=== PATIENT | male | born 1955 | race Hispanic/Latino ===

== ENCOUNTER 2024-03-29 05:59 | Observation (INO) | payer MEDICARE ==
[2024-03-27 09:47] LABS: BASOPHILS % 0.6 % (0.0-1.0); EOSINOPHILS # (AUTO) 0.1 (0.0-0.4); HEMATOCRIT 46.9 % (38.2-49.6); HEMOGLOBIN 14.6 g/dL (14.0-18.0); MEAN CORPUSCULAR HEMOGLOBIN 28.9 pg (28-32); MEAN CORPUSCULAR HGB CONC 31.1 g/dL (31-35); MEAN CORPUSCULAR VOLUME 92.9 fL (81-99); MONOCYTES # (AUTO) 0.5 (0.2-0.8); MONOCYTES % 6.7 % (4.4-11.3); NEUTROPHILS # (AUTO) 3.2 (2.1-6.9); NEUTROPHILS % 47.4 % (38.7-80.0); PLATELET COUNT 214 x10e3/uL (140-360); RED BLOOD COUNT 5.05 x10e6/uL (4.3-5.7); RED CELL DISTRIBUTION WIDTH 15.7 % (11.7-14.4); WHITE BLOOD COUNT 6.72 x10e3/uL (4.8-10.8)
[2024-03-27 10:00] LABS: INR 0.9; PROTHROMBIN TIME 12.7 seconds (11.9-14.5)
[2024-03-27 10:01] LABS: PARTIAL THROMBOPLASTIN TIME 23.1 seconds (23.8-35.5)
[2024-03-27 11:26] LABS: ANION GAP 17.2 mmol/L (8-16); CALCIUM 9.8 mg/dL (8.4-10.2); CREATININE, SERUM 0.9 mg/dL (0.72-1.25)
[2024-03-27 11:27] LABS: POTASSIUM 5.2 mmol/L (3.5-5.1)
[~2024-03-29] VITALS: Ht 160 cm; Wt 112.0 kg
[~2024-03-29 05:59] MED LIST: ALLOPURINOL300 MG PO; ASPIRIN81 MG PO; CALCIUM PO; FLOMAX0.4 MG PO; LEVOTHYROXINE50 MCG PO; LIPITOR10 MG PO; MAGNESIUM OXID400 MG PO; METFORMIN HCL500 MG PO; METOPROLOL SUCC25 MG PO; MULTI-VITAMIN1 EACH PO; VIT D; VIT D3 PO
[2024-03-29] MEDS: LACTATED RINGER'S 1,000 ML ONE (06:26)
[2024-03-29] MEDS: CEFAZOLIN SODIUM 2 GM ONE (06:26)
[2024-03-29] MEDS ORDERED: MIDAZOLAM HCL 2 MG/2 ML VIAL ONE (07:02)
[2024-03-29] MEDS ORDERED: LIDOCAINE HCL 2% LOCAL INJ 5 ML SDV VIAL INJ ONE (07:02)
[2024-03-29] MEDS ORDERED: SEVOFLURANE INHAL SOLN 250 ML PEN BTL ONE (07:02)
[2024-03-29] MEDS ORDERED: PROPOFOL IV EMULSION 10 MG/ML 20 ML VIAL ONE (07:02)
[2024-03-29] MEDS ORDERED: FENTANYL CITRATE/PF 100MCG/2 ML INJ ONE (07:02)
[2024-03-29] MEDS ORDERED: ROCURONIUM BROMIDE 1 ML IV ONE ×2 (07:02→08:06)
[2024-03-29] MEDS ORDERED: SUCCINYLCHOLINE CHLORIDE 20 MG/ML 10ML VIAL ONE (07:43)
[2024-03-29] MEDS ORDERED: ACETAMINOPHEN 1000 MG/100 ML 100 ML IV ONE (07:58)
[2024-03-29] MEDS ORDERED: EPHEDRINE SULFATE INJ 50 MG/ML VIAL ONE (08:06)
[2024-03-29] MEDS ORDERED: DEXMEDETOMIDINE HCL 2 ML ONE (08:12)
[2024-03-29] MEDS ORDERED: SODIUM CHLORIDE 0.9% 100 ML ONE (08:13)
[2024-03-29] MEDS ORDERED: SUGAMMADEX SODIUM 200 MG/2 ML VIAL IV ONE ×3 (08:20→09:56)
[2024-03-29] MEDS ORDERED: EYE LUBRICANT OPTH OINT 3.5GM TUBE OP ONE (08:35)
[2024-03-29] MEDS ORDERED: HYDROCODON-ACE1 EA12 PO (10:08)
[2024-03-29] MEDS ORDERED: PROMETHAZINE HCL (IM) 25 MG/ML VIAL IM PRN (10:15)
[2024-03-29] MEDS ORDERED: HYDROMORPHONE 2MG/ML IV PRN (10:15)
[2024-03-29] MEDS ORDERED: Morphine 2mg Syringe 2 MG/ML SYR IV PRN (10:15)
[2024-03-29] MEDS ORDERED: MAGNESIUM/ALUMINUM/SIMETHICONE 30 ML UDC PO PRN (10:15)
[2024-03-29] MEDS ORDERED: CARISOPRODOL 350 MG TAB PO PRN (10:15)
[2024-03-29] MEDS ORDERED: ZOLPIDEM TARTRATE 5 MG TAB PO PRN (10:15)
[2024-03-29] MEDS ORDERED: ONDANSETRON HCL INJ 2MG/ML 2ML 2 MG/ML VIAL IV PRN (10:15)
[2024-03-29] MEDS ORDERED: CEPACOL SORE THROAT LOZENGES PO PRN (10:15)
[2024-03-29] MEDS ORDERED: ACETAMINOPHEN 325 MG TAB PO PRN (10:15)
[2024-03-29] MEDS ORDERED: DEXTROSE 50% SYRINGE 50 ML IV PRN (10:15)
[2024-03-29] MEDS: FENTANYL CITRATE/PF 100MCG/2 ML INJ ONE (10:37)
[2024-03-29 12:16] VITALS: BP 153/90; PULSE 76; RESP 14; TEMP 97.6; O2SAT 98
[2024-03-29 13:02] VITALS: BP 153/90; PULSE 76; RESP 14; TEMP 97.6; O2SAT 98
[2024-03-29] MEDS: LACTATED RINGER'S 1,000 ML IV SCH (14:00)
[2024-03-29] MEDS: METFORMIN HCL 500 MG TAB PO SCH (16:34)
[2024-03-29] MEDS: MAGNESIUM OXIDE 400 MG TAB PO SCH (16:34)
[2024-03-29 16:36] VITALS: BP 146/84; PULSE 82; RESP 16; TEMP 98.6; O2SAT 97
[2024-03-29 19:42] VITALS: BP 155/86; PULSE 86; RESP 18; TEMP 98.9; O2SAT 92
[2024-03-29 20:00] VITALS: BP 155/86; PULSE 86; RESP 18; TEMP 98.9; O2SAT 92
[2024-03-29] MEDS: ATORVASTATIN 40 MG TAB PO SCH (20:45)
[2024-03-29] MEDS: METOPROLOL SUCCINATE 25 MG TAB XL PO SCH (20:46)
[2024-03-29] MEDS: OXYCODONE/ACETAMINOPHEN 5-325 1 EACH TABLET PO PRN (20:55)
[2024-03-30] VITALS: BP 133/89; PULSE 68; RESP 18; TEMP 97.7; O2SAT 97
[2024-03-30 05:18] VITALS: BP 115/72; PULSE 61; RESP 18; TEMP 97.9; O2SAT 97
[2024-03-30] MEDS: LEVOTHYROXINE SODIUM 50 MCG TAB PO SCH (05:35)
[2024-03-30 08:30] VITALS: BP 108/67; PULSE 73; RESP 20; TEMP 97.7; O2SAT 96
[2024-03-30] MEDS: MULTIVITAMINS/MINERALS TAB PO SCH (08:32)
[2024-03-30] MEDS: ALLOPURINOL 300 MG TAB PO SCH (08:33)
[2024-03-30] MEDS: TAMSULOSIN HCL 0.4 MG CAP PO SCH (08:33)
[2024-03-30 08:53] VITALS: BP 108/67; PULSE 73; RESP 20; TEMP 97.7; O2SAT 96
== END 2024-03-30 10:55 | disposition home or self-care (01) ==
LOC: OR 05:59 → PACU V 10:04 → MED/SURG 11:56
PROVIDERS: ADMIT Neurological Surgery; ATTEND Neurological Surgery
DX: M50.01 Cervical disc disorder with myelopathy, high cervical region (principal); G56.01 Carpal tunnel syndrome, right upper limb; G47.33 Obstructive sleep apnea (adult) (pediatric); E11.9 Type 2 diabetes mellitus without complications; I10 Essential (primary) hypertension; E03.9 Hypothyroidism, unspecified; E78.5 Hyperlipidemia, unspecified; E66.9 Obesity, unspecified; E66.01 Morbid (severe) obesity due to excess calories; N40.0 Benign prostatic hyperplasia without lower urinary tract symptoms; N20.0 Calculus of kidney; Z88.6 Allergy status to analgesic agent; Z01.810 Encounter for preprocedural cardiovascular examination; Z01.812 Encounter for preprocedural laboratory examination; Z01.818 Encounter for other preprocedural examination; Z79.82 Long term (current) use of aspirin; Z79.84 Long term (current) use of oral hypoglycemic drugs; Z79.899 Other long term (current) drug therapy; Z68.41 Body mass index [BMI] 40.0-44.9, adult
CPT/HCPCS: 36415; 71046; 72040; 76000; 80048; 82948; 85025; 85610; 85730; 86850; 86900; 88304; 93005; C1713; C1768; G0378; J0330; J0690; J2003; J2250; J7050

== ENCOUNTER → 2024-05-10 | Day surgery (SDC) | payer MEDICARE ==
[2024-05-08 09:53] LABS: BASOPHILS # (AUTO) 0.1 (0.0-0.1); BASOPHILS % 0.7 % (0.0-1.0); EOSINOPHILS # (AUTO) 0.1 (0.0-0.4); EOSINOPHILS % 0.8 % (0.0-6.0); HEMATOCRIT 43.3 % (38.2-49.6); HEMOGLOBIN 13.9 g/dL (14.0-18.0); LYMPHOCYTES # (AUTO) 3.2 (1.0-3.2); LYMPHOCYTES % 45.3 % (18.0-39.1); MEAN CORPUSCULAR HEMOGLOBIN 28.8 pg (28-32); MEAN CORPUSCULAR HGB CONC 32.1 g/dL (31-35); MEAN CORPUSCULAR VOLUME 89.8 fL (81-99); MONOCYTES # (AUTO) 0.7 (0.2-0.8); MONOCYTES % 9.9 % (4.4-11.3); PLATELET COUNT 249 x10e3/uL (140-360); RED BLOOD COUNT 4.82 x10e6/uL (4.3-5.7); RED CELL DISTRIBUTION WIDTH 15.4 % (11.7-14.4); WHITE BLOOD COUNT 7.08 x10e3/uL (4.8-10.8)
[2024-05-08 10:22] LABS: ANION GAP 13.5 mmol/L (8-16); CALCIUM 9.2 mg/dL (8.4-10.2); CREATININE, SERUM 0.88 mg/dL (0.72-1.25); POTASSIUM 4.5 mmol/L (3.5-5.1)
[~2024-05-10] MED LIST changes: +ACETAMINOPHEN 1000 MG/100 ML 100 ML IV ONE; +FAMOTIDINE 20 MG/2 ML VIAL IV ONE; +FENTANYL CITRATE/PF 100MCG/2 ML INJ ONE; +HYDROCODON-ACE1 EA12 PO; +LIDOCAINE HCL 2% LOCAL INJ 5 ML SDV VIAL INJ ONE; +ONDANSETRON HCL INJ 2MG/ML 2ML 2 MG/ML VIAL ONE; +PROPOFOL IV EMULSION 10 MG/ML 20 ML VIAL ONE; +SEVOFLURANE INHAL SOLN 250 ML PEN BTL ONE
[2024-05-10] MEDS: CEFAZOLIN SODIUM 2 GM ONE (07:11)
[2024-05-10] MEDS: LACTATED RINGER'S 1,000 ML ONE (07:12)
[2024-05-10 11:00] VITALS: BP 136/82; PULSE 67; RESP 17; O2SAT 95
== END | disposition home or self-care (01) ==
LOC: OR 06:28
PROVIDERS: ATTEND Neurological Surgery
DX: G56.02 Carpal tunnel syndrome, left upper limb (principal); G47.33 Obstructive sleep apnea (adult) (pediatric); E11.9 Type 2 diabetes mellitus without complications; I10 Essential (primary) hypertension; E78.5 Hyperlipidemia, unspecified; E03.9 Hypothyroidism, unspecified; M50.01 Cervical disc disorder with myelopathy, high cervical region; R05.9 Cough, unspecified; E66.01 Morbid (severe) obesity due to excess calories; N20.0 Calculus of kidney; Z88.6 Allergy status to analgesic agent; Z01.812 Encounter for preprocedural laboratory examination; Z79.84 Long term (current) use of oral hypoglycemic drugs; Z79.899 Other long term (current) drug therapy; Z68.41 Body mass index [BMI] 40.0-44.9, adult
CPT/HCPCS: 36415; 64721; 80048; 85025; J0131; J2003; J2405; J2704; J3010; J7121

== ENCOUNTER → 2024-06-01 | Outpatient (RCR) | payer MEDICARE ==
[~2024-06-01] MED LIST changes: -ACETAMINOPHEN 1000 MG/100 ML 100 ML IV ONE; -FAMOTIDINE 20 MG/2 ML VIAL IV ONE; -FENTANYL CITRATE/PF 100MCG/2 ML INJ ONE; -LIDOCAINE HCL 2% LOCAL INJ 5 ML SDV VIAL INJ ONE; -ONDANSETRON HCL INJ 2MG/ML 2ML 2 MG/ML VIAL ONE; -PROPOFOL IV EMULSION 10 MG/ML 20 ML VIAL ONE; -SEVOFLURANE INHAL SOLN 250 ML PEN BTL ONE
== END ==
LOC: PT 05-22 09:44
PROVIDERS: ATTEND Specialist
DX: M75.22 Bicipital tendinitis, left shoulder (principal)

== ENCOUNTER 2024-06-29 08:00 | Outpatient (RCR) | payer MEDICARE | END 2024-07-02 | LOC: PT 08:00 | PROVIDERS: ATTEND Neurological Surgery | DX: M75.22 Bicipital tendinitis, left shoulder (principal) ==

== ENCOUNTER 2024-07-31 08:00 | Outpatient (RCR) | payer MEDICARE | END 2024-08-01 | LOC: OT 08:00 | PROVIDERS: ATTEND Neurological Surgery | DX: M75.22 Bicipital tendinitis, left shoulder (principal) ==

== ENCOUNTER → 2024-10-04 | Outpatient (REF) | payer MEDICARE ==
[~2024-10-04] MED LIST changes: +IOPAMIDOL 370 MG/ML 100 ML INFUS..BTL INJ ONE; +METOPROLOL TARTRATE 25 MG TAB ONE; +METOPROLOL TARTRATE INJ 1 MG/ML VIAL ONE; +NITROGLYCERIN 0.4 MG SUBL ONE; +SODIUM CHLORIDE 0.9% 0 ML ONE
[2024-10-04 08:50] LABS: EST GLOMERULAR FILTRATION RATE 94.0 ML/MIN (>=60)
== END ==
LOC: CT 07:41
PROVIDERS: ATTEND Internal Medicine Cardiovascular Disease
DX: I20.9 Angina pectoris, unspecified (principal)
CPT/HCPCS: 36415; 82565; 84520; J7050; Q9967

== ENCOUNTER → 2024-10-16 | Outpatient (REF) | payer MEDICARE ==
[~2024-10-16] MED LIST changes: -IOPAMIDOL 370 MG/ML 100 ML INFUS..BTL INJ ONE; -METOPROLOL TARTRATE 25 MG TAB ONE; -METOPROLOL TARTRATE INJ 1 MG/ML VIAL ONE; -NITROGLYCERIN 0.4 MG SUBL ONE; -SODIUM CHLORIDE 0.9% 0 ML ONE
== END ==
LOC: RAD 12:42
PROVIDERS: ATTEND Neurological Surgery
DX: M50.01 Cervical disc disorder with myelopathy, high cervical region (principal)
CPT/HCPCS: 72052

== ENCOUNTER → 2024-10-18 | Outpatient (REF) | payer MEDICARE ==
[~2024-10-18] MED LIST changes: +IOPAMIDOL 370 MG/ML 100 ML INFUS..BTL INJ ONE; +METOPROLOL TARTRATE 25 MG TAB ONE; +METOPROLOL TARTRATE INJ 1 MG/ML VIAL ONE; +NITROGLYCERIN 0.4 MG SUBL ONE; +SODIUM CHLORIDE 0.9% 100 ML ONE
== END ==
LOC: CT 09:44
PROVIDERS: ATTEND Internal Medicine Cardiovascular Disease
DX: I20.9 Angina pectoris, unspecified (principal)
CPT/HCPCS: 75574; J7050; Q9967